=== PATIENT | male | born 1955 | race Two or more races ===

== ENCOUNTER 2017-07-15 20:34 | Emergency (ER) | payer BC ==
[~2017-07-15] VITALS: Ht 167.6 cm; Wt 64.9 kg
--- NOTE | 2017-07-15 20:58 | NUR ---
LAB AT BEDSIDE FOR BLOOD DRAW
--- NOTE | 2017-07-15 20:58 | NUR ---
[facility] AT BEDSIDE FOR CXR
[2017-07-15] MEDS ORDERED: IV NS 0.9% 500 ML BAG IV ONE (21:00)
--- NOTE | 2017-07-15 21:00 | NUR ---
PT DENIED XRAY UNTIL MD SEES HIM. "I DONT NEED ANYTHING THAT MAY NOT BE NEEDED"
--- NOTE | 2017-07-15 21:03 | NUR ---
ER MD [facility] AT BEDSIDE FOR EVAL
[2017-07-15 21:04] LABS: BASOPHILS # (AUTO) 0.1 /CMM (0.0-0.2); EOSINOPHILS % (AUTO) 0.6 % (0.0-6.0); HEMATOCRIT 31 % (39-51); HEMOGLOBIN 11.1 g/dL (13.5-17.5); LYMPHOCYTES # (AUTO) 0.8 /CMM (0.8-4.8); LYMPHOCYTES % (AUTO) 11.9 % (20.0-44.0); MEAN CORPUSCULAR HEMOGLOBIN 32 PG (26.0-33.0); MEAN CORPUSCULAR HGB CONC 35 g/dl (31.0-36.0); MEAN CORPUSCULAR VOLUME 91 fL (80-96); MONOCYTES # (AUTO) 0.7 /CMM (0.1-1.30); MONOCYTES % (AUTO) 10.3 % (2.0-12.0); NEUTROPHILS # (AUTO) 5.3 /CMM (1.8-8.9); NEUTROPHILS % (AUTO) 76.2 % (43.0-81.0); PLATELET COUNT (AUTO) 129 /CMM (150-450); RDW COEFFICIENT OF VARIATION 16.8 (11.5-15.0); RED BLOOD CELL COUNT(AUTO) 3.46 MIL/uL (4.5-6.0); WHITE BLOOD COUNT (AUTO) 6.9 K/uL (4.3-11.0)
[2017-07-15 21:15] LABS: CALCIUM, SERUM 8.9 mg/dL (8.5-10.1); CREATININE 0.8 mg/dL (0.6-1.3); POTASSIUM 3.9 mmol/L (3.5-5.1)
--- NOTE | 2017-07-15 21:16 | NUR ---
MD AND PT AGREED TO SKIP CXR. WILL AWAIT LAB RESULTS
[2017-07-15 21:24] LABS: TROPONIN I 0.256 ng/mL (0.00-0.056)
--- NOTE | 2017-07-15 21:47 | NUR ---
PT AND FAMILY ARE DISCUSSING ROUTE OF CARE. PT MIGHT WANT TO AMA OR STAY WITH ELEVATED TROP BLOOD LEVEL
--- NOTE | 2017-07-15 22:05 | NUR ---
PT AND FAMILY HAVE DECIDED ON AMA FROM FACILITY. WILL GO TO [facility] ER ON OWN. MD AWARE. WILL CONTINUE TO MONITOR FOR ANY CHANGES
--- NOTE | 2017-07-15 22:15 | NUR ---
Patient does not wish to proceed with medical care recommended by Dr. BHAGAT. Patient given information related to possible complications, up to and including , which could occur as a result of leaving the hospital at this time. Patient verbalizes understanding of risks involved due to leaving against medical advice. Patient has signed AMA form.
[2017-07-15 22:16] VITALS: BP 107/78
== END 2017-07-15 22:17 | disposition home or self-care (01) ==
LOC: ER 20:37
DX: I21.4 Non-ST elevation (NSTEMI) myocardial infarction (principal); R55 Syncope and collapse; G62.9 Polyneuropathy, unspecified; Z85.72 Personal history of non-Hodgkin lymphomas
CPT/HCPCS: 36415; 80048; 82962; 84484; 85025; 93005; 99285; A4606; J7040; Z7610